=== PATIENT | male | born 1995 | race Two or more races ===

== ENCOUNTER 2024-03-13 10:09 | Emergency (ER) | payer OTHER ==
[~2024-03-13] VITALS: Ht 175.3 cm; Wt 90.7 kg
[2024-03-13 10:21] VITALS: BP 135/85; O2SAT 98
[2024-03-13] MEDS ORDERED: SIMVASTATIN5 MG (10:21)
[2024-03-13] MEDS ORDERED: CEFTRIAXONE SODIUM 1,000 MG VIAL IM STA (10:45)
[2024-03-13] MEDS ORDERED: KETOROLAC TROMETHAMINE 30 MG VIAL IM STA (10:47)
[2024-03-13] MEDS ORDERED: CEFTRIAXONE SODIUM 1,000 MG VIAL ONE (11:04)
[2024-03-13] MEDS ORDERED: KETOROLAC TROMETHAMINE 30 MG VIAL ONE (11:04)
== END 2024-03-13 11:12 | disposition home or self-care (01) ==
LOC: ER 10:12
DX: S68.110A Complete traumatic metacarpophalangeal amputation of right index finger, initial encounter (principal); W26.0XXA Contact with knife, initial encounter; Y93.89 Activity, other specified; Y92.89 Other specified places as the place of occurrence of the external cause